=== PATIENT | male | born 1955 | race Two or more races ===

== ENCOUNTER → 2024-10-10 | Emergency (ER) | payer OTHER ==
[~2024-10-10] VITALS: Ht 157.5 cm; Wt 68.9 kg
[~2024-10-10] MED LIST: 0.9 % SODIUM CHLORIDE 500 ML IV STA; THIAMINE HCL 100 MG/ML 2 ML VIAL IV STA
== END | disposition home or self-care (01) ==
LOC: ER 02:30
DX: F10.10 Alcohol abuse, uncomplicated (principal)